=== PATIENT | female | born 1985 | race Caucasian/White ===

== ENCOUNTER 2020-04-22 19:44 | Emergency (ER) | payer SELFPAY ==
[~2020-04-22] VITALS: Ht 160 cm; Wt 65.8 kg
[2020-04-22] MEDS ORDERED: WELLBUTRIN SR150 MG PO (20:00)
[2020-04-22] MEDS ORDERED: ADDERALL 10 MG10 MG PO (20:01)
[2020-04-22] MEDS ORDERED: YAZ 28 TABLET1 EACH PO (20:01)
[2020-04-22] MEDS ORDERED: FLAGYL500 MG PO (20:01)
--- OUTSIDE RECORDS SUMMARY | 2020-04-22 20:34 | XMS ---
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 - 3 Facilities in 90 Days - PDMP - [facility] - 2 Visits in 30 Days CARE PROVIDERS SHAILA SILVA Nurse Practitioner: Primary Care Current PHONE: [phone] EVAN SANDERS Nurse Practitioner: Family Current PHONE: [phone] Yael has no Care Guidelines for this patient. E.D. VISIT COUNT (12 MO.) 2 Angelica Saint Car [facility] 1 [facility] 3 [facility] [address] [facility] 1 [facility] 1 Bryant Mcgrath 1 [facility] 1 LUKE Welch TOTAL 11 NOTE: Visits indicate total known visits. ED/UCC VISIT TRACKING (12 MO.) 04/22/2020 19:46 LUKE Graham TYPE: Emergency COMPLAINT: - CHEST PAIN,SOB 04/03/2020 20:58 Angelica Saint Car [facility]ART[facility]NE[facility] TYPE: Emergency DIAGNOSES: - Tachycardia - Abdominal Pain - Female pelvic inflammatory disease, unspecified - Right lower quadrant pain 03/26/2020 18:39 Sandip MARTÍNEZ TYPE: Emergency DIAGNOSES: - Pain in right hip - Hip Pain 01/23/2020 20:24 Shailesh MARTÍNEZ TYPE: Emergency DIAGNOSES: - Myalgia, other site - NECK PAIN 12/28/2019 16:54 [facility] Sarah Beth [facility]ART[facility] TYPE: Urgent Care DIAGNOSES: - Acute pharyngitis, unspecified - Sore throat 12/07/2019 08:41 Shailesh NAJERA TYPE: Emergency DIAGNOSES: - Other muscle spasm - NECK PAIN 12/06/2019 08:31 [facility] TYPE: Emergency DIAGNOSES: 14966. lump on head 11[facility]20[facility]2019 22[facility] DIAGNOSES: - ABD PAIN - Hematuria, unspecified - Strain of muscle, fascia and tendon of abdomen, initial encou - Left lower quadrant pain 11/19/2019 14:41 [facility] TYPE: Emergency DIAGNOSES: - Abd Pain, Dizziness - Lower abdominal pain, unspecified 09/03/2019 11:00 [facility] De[facility] TYPE: Emergency DIAGNOSES: - Facial Injury - Laceration without foreign body of nose, initial encounter - Med Eval - Unspecified injury of nose, initial encounter 08/29/2019 10:31 [facility] [place] TYPE: Emergency DIAGNOSES: - Female pelvic inflammatory disease, unspecified - Back Pain - abdominal Pain - Unspecified abdominal pain 08/13/2019 10:04 [facility] [place] TYPE: Emergency DIAGNOSES: - Urinary Frequency - Unspecified abdominal pain - Other specified bacterial agents as the cause of diseases cla - Flank Pain - Acute vaginitis - Back Pain 08/04/2019 08:29 [facility]un [facility] [place] TYPE: Urgent Care DIAGNOSES: - Painful micturition, unspecified - Urinary tract infection, site not specified 06/28/2019 12:03 [facility] TYPE: Urgent Care 05/18/2019 14:02 Shaun [facility] [place] TYPE: Urgent Care DIAGNOSES: - Cystitis, unspecified without hematuria - Dysuria INPATIENT VISIT TRACKING (12 MO.) No inpatient visits to display in this time frame [email or web address]
--- NOTE | 2020-04-23 07:19 | EKG ---
[facility] [address] [place], [place] [address] Signed Normal sinus rhythm with sinus arrhythmia Nonspecific T wave abnormality Abnormal ECG No previous ECGs available Confirmed by ASHLEY LINTON MD ([id number]) on 04/23/2020 7:19:41 AM Electronically Signed By: ASHLEY LINTON MD 04/23/20 0719 PATIENT NAME: JUAN MALCOLM Electrocardiogram DATE OF : 83 PHYSICIAN: ASHLEY LINTON MD REPORT #: [id number] REPORT IS CONFIDENTIAL AND NOT TO BE RELEASED WITHOUT AUTHORIZATION
== END 2020-04-22 21:40 | disposition home or self-care (01) ==
LOC: ED 19:44
DX: R07.89 Other chest pain (principal); F41.9 Anxiety disorder, unspecified; Z88.8 Allergy status to other drugs, medicaments and biological substances; Z88.5 Allergy status to narcotic agent; Z79.899 Other long term (current) drug therapy
CPT/HCPCS: 71045; 80053; 83735; 84484; 84703; 85025; 85379; 93005; 93010; 99285-25